=== PATIENT | female | born 1960 | race Caucasian/White ===

== ENCOUNTER 2019-08-11 14:46 | Outpatient (CLI) | payer BC, SELFPAY ==
--- NOTE | ~2019-08-11 | DEXA_ITS ---
Bone Density Report Name: Libby Josue Age: 59 Sex: Female Ethnicity: White Date of : 1960 Indication: postmenopausal; height loss; Referring Provider: Kathie Sabillon Study: Bone densitometry was performed. Exam Date: August 11, 2019 Accession number: [id number] Bone Density: Region BMD T-score Z-score Classification AP Spine (L2, L3, L4) 1.355 2.5 4.0 Normal Femoral Neck (Left) 0.695 -1.4 -0.1 Osteopenia Total Hip (Left) 0.793 -1.2 -0.3 Osteopenia World Health Organization criteria for BMD impression classify patients as: Normal (T-score at or above -1.0), Osteopenia (T-score between -1.0 and -2.5), or Osteoporosis (T-score at or below -2.5). 10-year Fracture Risk(1): Major Osteoporotic Fracture 6.2% Hip Fracture 0.4% Reported Risk Factors: [place] (), Neck BMD=0.695, BMI=53.8 Input outside FRAX(R) limits. Adjusted to:Dnnosj=337 kg (1) FRAX(R) Version 3.08. Fracture probability calculated for an untreated patient. Fracture probability may be lower if the patient has received treatment. Previous Exams: Region Exam Age BMD T-score BMD Change BMD Change Date g/cm2 vs Baseline vs Previous AP Spine(L2, L3, L4) 08/11/2019 59 1.355 2.5 0.219(19.3%)* 0.338(33.2%)* 06/11/2017 57 1.017 -0.6 -0.119(-10.4%) -0.119(-10.4%) 01/14/2015 54 1.136 0.5 Total Hip(Left) 08/11/2019 59 0.793 -1.2 -0.173(-17.9%) -0.250(-24.0%) 06/11/2017 57 1.042 0.8 0.077(8.0%)# 0.077(8.0%)# 01/14/2015 54 0.966 0.2 *Denotes significance at 95% confidence level, LSC for AP Spine = 0.022 g/cm2, LSC for Total Hip = 0.027 g/cm2 Clinical Information Provided by Patient: Has used the following medications: Boniva (i.e. ibandronate) Patient maximum height was 61 Menopause Age: 52 No regular weight bearing exercise Does not regularly consume dairy products Onset of menses at age 11 Number of children 1 Impression: The patient has low bone mass, based on the Left Femoral Neck T-score. The patient has an estimated ten-year risk of hip fracture of 0.4% and an estimated ten-year risk of major fracture of 6.2%, based on the WHO FRAX algorithm. No significant bone loss was observed. Discussion: BONE DENSITY IS LOW AT ONE OR MORE SKELETAL SITES. This patient's lowest T-score is low at one or more skeletal sites. It meets the World Health Organization's (WHO) criteria for ?low bone mass? (T-score between -1.0 and -2.5). The patient's 10-year risk of fracture as calculated by FRAX is less than the threshold wh
--- NOTE | ~2019-08-11 | MM_ITS ---
EXAMINATION: MM screening bautista BI w vijay HISTORY: Screening mammogram TECHNIQUE: Craniocaudal and mediolateral oblique 3-D tomosynthesis images were obtained and synthetic 2-D images were generated. CAD analysis was submitted and interpreted. COMPARISON: Comparison to multiple prior studies sequentially, with oldest reviewed study dated 07/2015. BREAST PARENCHYMAL COMPOSITION: There are scattered areas of fibroglandular density. FINDINGS: There is no evidence of suspicious mass, calcification, or architectural distortion to sugg est malignancy in either breast. There has been no suspicious interval change. IMPRESSION: 1. No mammographic evidence of malignancy. 2. Recommend routine screening mammography in one year. BI-RADS Category 1: Negative Reviewed, dictated and finalized at location A. ORICAL INTERPRETER
== END 2019-08-11 14:47 | disposition home or self-care (01) ==
LOC: ANHIMG 14:47
PROVIDERS: PCP Family Medicine; Visit Provider Student in an Organized Health Care Education/Training Program
DX: Z12.31 Encounter for screening mammogram for malignant neoplasm of breast (principal); Z78.0 Asymptomatic menopausal state; M85.852 Other specified disorders of bone density and structure, left thigh
CPT/HCPCS: 77063; 77067; 77080

== ENCOUNTER 2019-12-01 09:14 | Outpatient (CLI) | payer BC, SELFPAY ==
--- NOTE | ~2019-12-01 | CT_ITS ---
EXAMINATION: CT brain wo con DATE: 12/01/2019 09:52 INDICATION: Bilateral upper extremity paresis. Lightheadedness. TECHNIQUE: Computed tomography (CT) of the head was performed without intravenous contrast. The mA wa s adjusted according to patient size. Iterative reconstruction technique was employed. Exam dose: 60 5.33 mGy-cm total exam DLP. COMPARISON: None FINDINGS: No intracranial mass lesion or hemorrhage or cerebrovascular accident is evident. No midlin e shift or mass effect. Normal ventricular size. No subdural or epidural hematoma. No orbital mass lesion is evident. The included paranasal sinuses and mastoid air cells are normally developed and aerated. No fracture or bone destruction of the cranial vault. IMPRESSION: No significant abnormality Reviewed, dictated and finalized at Location A. Reviewed, dictated and finalized at location A. IMPRESSION: No significant abnormality
--- NOTE | ~2019-12-01 | US_ITS ---
EXAMINATION: US carotid duplex BI DATE: 12/01/2019 09:48 INDICATION: Bilateral arm weakness. TECHNIQUE: Grayscale, color Doppler, and pulsed Doppler images of the cervical carotid arteries were obtained. The degree of vessel stenosis is placed in one of the following categories: normal, <50%, 5 0-69%, >=70% but less than near-occlusion, near-occlusion, or total occlusion. Note that percent sten osis relative to normal distal artery lumen diameter is indirectly measured from velocity measurement s as described by Ruddy, et al. Radiology 2003; 229:340-346. COMPARISON: None. FINDINGS: RIGHT: The right common carotid artery (CCA) peak systolic velocity (PSV) is 88 cm/s. The right internal car otid artery (ICA) PSV is 76 cm/s. The right ICA end-diastolic velocity (EDV) is 19 cm/s. The right IC A/CCA PSV ratio is 0.9. Grayscale and color Doppler images demonstrate no evident plaque or stenosis in the ICA. The external carotid artery (ECA) PSV is 71 cm/s. There is antegrade flow in the right ve rtebral artery. LEFT: The left CCA PSV is 97 cm/s. The left ICA PSV is 54 cm/s. The left ICA EDV is 16 cm/s. The left ICA/C CA PSV ratio is 0.6. Grayscale and color Doppler images demonstrate no evident plaque or stenosis in the ICA. The ECA PSV is 49 cm/s. There is antegrade flow in the left vertebral artery. IMPRESSION: 1. No evident plaque or stenosis in the right internal carotid artery. 2. No evident plaque or stenosis in the left internal carotid artery. Reviewed, dictated and finalized at location A.
== END 2019-12-01 09:15 | disposition home or self-care (01) ==
LOC: ANHIMG 09:20
PROVIDERS: PCP Family Medicine; Visit Provider Physician Assistant
DX: R51 Headache (principal); R42 Dizziness and giddiness; R29.898 Other symptoms and signs involving the musculoskeletal system
CPT/HCPCS: 70450; 93880

== ENCOUNTER 2020-06-24 15:57 | Outpatient (CLI) | payer BC, SELFPAY ==
[2020-06-24 17:43] LABS: D Dimer 0.67 ug/mL (<0.48)
== END 2020-06-24 15:58 | disposition home or self-care (01) ==
PROVIDERS: PCP Family Medicine; Visit Provider Family Medicine
DX: R07.9 Chest pain, unspecified (principal)
CPT/HCPCS: 36415; 85380

== ENCOUNTER 2020-06-25 08:58 | Outpatient (CLI) | payer BC, SELFPAY ==
--- NOTE | ~2020-06-25 | CT_ITS ---
EXAMINATION: CTA chest PE protocol DATE: 06/25/2020 09:44 INDICATION: Chest pain TECHNIQUE: Computed tomography angiography (CTA) of the chest was performed with 100 mL Omnipaque-350 intravenous contrast timed to evaluate the pulmonary arteries. Coronal maximum intensity projection 3D-reconstructions were created by the technologist. Automated exposure control and iterative reconst ruction technique were employed. Exam dose: 958.64 mGy-cm total exam DLP. COMPARISON: None. FINDINGS: Examination is limited due to body habitus. The pulmonary arteries are moderately opacified with contrast material, without evidence of embolism. No evidence of thoracic aortic aneurysm. Cardiomegaly. No pericardial effusion. Left lobe thyroid goiter. No hilar or mediastinal mass lesion or lymphadenopathy. Small sliding hiatal hernia. No pulmonary consolidation or pulmonary mass lesion is evident. There is degenerative spurring of the thoracic spine. No suspicious osteolytic or osteoblastic lesion s are noted. IMPRESSION: No evidence of pulmonary embolism Reviewed, dictated and finalized at Location A. Reviewed, dictated and finalized at location B. TREER
[2020-06-25 09:39] LABS: Estimated Glomerular Filt Rate > 60
== END 2020-06-25 08:59 | disposition home or self-care (01) ==
PROVIDERS: PCP Family Medicine; Visit Provider Family Medicine
DX: R06.02 Shortness of breath (principal); R07.9 Chest pain, unspecified; R79.89 Other specified abnormal findings of blood chemistry
CPT/HCPCS: 71275; Q9967

== ENCOUNTER 2020-10-11 09:09 | Outpatient (CLI) | payer BC, SELFPAY ==
--- NOTE | ~2020-10-11 | MM_ITS ---
EXAMINATION: MM screening bautista BI w vijay HISTORY: Screening mammogram, family history of breast cancer in her mother. TECHNIQUE: Craniocaudal and mediolateral oblique 3-D tomosynthesis images were obtained and synthetic 2-D images were generated. CAD analysis was submitted and interpreted. COMPARISON: 08/11/2019, 07/22/2018, 03/05/2017 BREAST PARENCHYMAL COMPOSITION: The breasts are almost entirely fatty. FINDINGS: There is no evidence of suspicious mass, calcification, or architectural distortion to sugg est malignancy in either breast. There has been no suspicious interval change. IMPRESSION: 1. No mammographic evidence of malignancy. 2. Recommend routine screening mammography in one year. BI-RADS Category 1: Negative Reviewed, dictated and finalized at location A.
== END 2020-10-11 09:10 | disposition home or self-care (01) ==
LOC: ANHIMG 09:12
PROVIDERS: PCP Family Medicine; Visit Provider Student in an Organized Health Care Education/Training Program
DX: Z12.31 Encounter for screening mammogram for malignant neoplasm of breast (principal)
CPT/HCPCS: 77063; 77067

== ENCOUNTER 2021-10-14 10:21 | Outpatient (CLI) | payer BC, SELFPAY ==
--- NOTE | ~2021-10-14 | MM_ITS ---
EXAMINATION: MM screening bautista BI w vijay HISTORY: Screening TECHNIQUE: Craniocaudal and mediolateral oblique 3-D tomosynthesis images were obtained and synthetic 2-D images were generated. CAD analysis was submitted and interpreted. COMPARISON: Comparison to multiple prior studies sequentially, with oldest reviewed study dated 07/2015. BREAST PARENCHYMAL COMPOSITION: The breasts are almost entirely fatty. FINDINGS: There is no evidence of suspicious mass, calcification, or architectural distortion to sugg est malignancy in either breast. There has been no suspicious interval change. IMPRESSION: 1. No mammographic evidence of malignancy. 2. Recommend routine screening mammography in one year. BI-RADS Category 1: Negative Reviewed, dictated and finalized at location A.
== END 2021-10-14 10:22 | disposition home or self-care (01) ==
PROVIDERS: PCP Family Medicine; Visit Provider Student in an Organized Health Care Education/Training Program
DX: Z12.31 Encounter for screening mammogram for malignant neoplasm of breast (principal)
CPT/HCPCS: 77063; 77067

== ENCOUNTER → 2022-04-17 08:36 | Outpatient (CLI) | payer BC, SELFPAY ==
--- NOTE | ~2022-04-17 | XR_ITS ---
XR shoulder LT min 2V 04/17/2022 08:55 Indication: Left shoulder pain for 2 months Procedure: 4 views left shoulder Comparison: 11/17/2012 Findings: No fracture, subluxation or dislocation. There is mild osteoarthritis of the acromioclavicu lar joint. No soft tissue abnormality. No foreign bodies. Impression: 1: Mild left acromioclavicular joint osteoarthritis. Reviewed, dictated and finalized at location B. Impression: 1: Mild left acromioclavicular joint osteoarthritis.
== END ==
PROVIDERS: PCP Family Medicine; Visit Provider Family Medicine
DX: M19.012 Primary osteoarthritis, left shoulder (principal)
CPT/HCPCS: 73030

== ENCOUNTER 2022-11-03 07:42 | Outpatient (CLI) | payer BC, SELFPAY ==
--- NOTE | ~2022-11-03 | US_ITS ---
EXAMINATION: US pelvic complete w TV DATE: 11/03/2022 08:25 INDICATION: Postmenopausal bleeding Comparison:Ultrasound dated 02/21/2005 TECHNIQUE: Multiple transabdominal and endovaginal sonographic images of the pelvis performed. FINDINGS: The uterus measures 10.9 x 3.7 x 4.2 cm. There are nabothian cysts. The endometrial complex measures 2 mm. The ovaries are not visualized, likely atrophic. There is no free fluid in the pelvis. There are no abnormal masses seen on either side. IMPRESSION: 1. Enlarged uterus. Reviewed, dictated and finalized at location L. IMPRESSION: 1. Enlarged uterus.
== END 2022-11-03 07:43 | disposition home or self-care (01) ==
PROVIDERS: PCP Family Medicine; Visit Provider Obstetrics & Gynecology
DX: N95.0 Postmenopausal bleeding (principal); D25.9 Leiomyoma of uterus, unspecified
CPT/HCPCS: 76830; 76856

== ENCOUNTER 2023-01-08 12:34 | Outpatient (CLI) | payer BC, SELFPAY ==
--- NOTE | ~2023-01-08 | US_ITS ---
EXAMINATION: US pelvic complete w TV DATE: 01/08/2023 13:39 INDICATION: N95.0 - Postmenopausal bleeding TECHNIQUE: Multiple transabdominal and endovaginal sonographic images of the pelvis were obtained. COMPARISON: None. FINDINGS: Exam limited by body habitus and obscuration of structures by bowel gas. Uterus: 8.5 x 3.5 x 3.6 cm. Endometrial complex measures 3 mm. Right Ovary: Not visualized. Left Ovary: Not visualized. There is no free fluid in the pelvis. IMPRESSION: Limited examination. Normal-appearing uterus. Ovaries not visualized. Reviewed, dictated and finalized at location K.
== END 2023-01-08 12:35 | disposition home or self-care (01) ==
PROVIDERS: PCP Family Medicine; Visit Provider Obstetrics & Gynecology
DX: N95.0 Postmenopausal bleeding (principal)
CPT/HCPCS: 76830; 76856

== ENCOUNTER 2023-03-19 14:00 | Outpatient (CLI) | payer BC, SELFPAY ==
--- NOTE | ~2023-03-19 | MM_ITS ---
EXAMINATION: MM screening bautista BI w vijay HISTORY: Screening mammogram TECHNIQUE: Craniocaudal and mediolateral oblique 3-D tomosynthesis images were obtained and synthetic 2-D images were generated. CAD analysis was submitted and interpreted. COMPARISON: 10/14/2021, 10/11/2020, 08/11/2019 bilateral screening mammogram examinations BREAST PARENCHYMAL COMPOSITION: The breasts are almost entirely fatty. FINDINGS: There is no evidence of suspicious mass, calcification, or architectural distortion to sugg est malignancy in either breast. There has been no suspicious interval change. IMPRESSION: 1. No mammographic evidence of malignancy. 2. Recommend routine screening mammography in one year. BI-RADS Category 1: Negative Reviewed, dictated and finalized at location A.
== END 2023-03-19 14:01 | disposition home or self-care (01) ==
LOC: CHSIMG 14:02
PROVIDERS: PCP Family Medicine; Visit Provider Obstetrics & Gynecology
DX: Z12.31 Encounter for screening mammogram for malignant neoplasm of breast (principal)
CPT/HCPCS: 77063; 77067

== ENCOUNTER 2024-07-06 13:14 | Outpatient (CLI) | payer MEDICARE, SELFPAY ==
--- NOTE | ~2024-07-06 | MM_ITS ---
EXAMINATION: MM screening bautista BI w vijay HISTORY: Screening mammogram, family history of breast cancer in her mother. TECHNIQUE: Craniocaudal and mediolateral oblique 3-D tomosynthesis images were obtained and synthetic 2-D images were generated. CAD analysis was submitted and interpreted. COMPARISON: 03/19/2023, 10/14/2021, 10/11/2020 BREAST PARENCHYMAL COMPOSITION:Not Dense. There are scattered areas of fibroglandular density. FINDINGS: No suspicious mass, calcification, or architectural distortion are identified in either lori ast to suggest malignancy. There has been no suspicious interval change. IMPRESSION: No mammographic evidence of malignancy. Recommend routine screening mammography in one year. BI-RADS Category 1: Negative Reviewed, dictated and finalized at location . WARE PACKAGER
--- NOTE | ~2024-07-06 | DEXA_ITS ---
Bone Density Report Name: HUMBERTO EMERSON Age: 64 Sex: Female Ethnicity: White Date of : 1960 Indication: postmenopausal; screening for osteoporosis; height loss; Referring Provider: AGUEDA GAVIN Study: Bone densitometry was performed. Exam Date: July 06, 2024 Accession number: [id number] Bone Density: Region BMD T-score Z-score Classification Femoral Neck (Left) -0.14 -8.9 -7.4 Osteoporosis Total Hip (Left) 1.117 1.4 2.7 Normal Femoral Neck (Right) 0.595 -2.3 -0.8 Osteopenia Total Hip (Right) 0.865 -0.6 0.6 Normal Femoral Neck Mean 0.227 -5.6 -4.1 Osteoporosis Total Hip Mean 0.991 0.4 1.6 Normal World Health Organization criteria for BMD impression classify patients as: Normal (T-score at or above -1.0), Osteopenia (T-score between -1.0 and -2.5), or Osteoporosis (T-score at or below -2.5). 10-year Fracture Risk: FRAX not reported because: Some T-score for Spine Total or Hip Total or Femoral Neck at or below -2.5 Treated for osteoporosis Clinical Information Provided by Patient: Is being treated for osteoporosis Has used the following medications: Boniva (i.e. ibandronate), Calcium Patient maximum height was 60 Menopause Age: 59 No regular weight bearing exercise Drinks caffeinated beverages Onset of menses at age 13 Number of children 1 Impression: The patient has osteoporosis, based on the Left Femoral Neck T-score. Discussion: It is important to ask patients whether they are taking their medications and to encourage continued and appropriate compliance with their osteoporosis therapies to reduce fracture risk. It is also important to review their risk factors and encourage appropriate calcium and vitamin D intakes, exercise, fall prevention and other lifestyle measures. Follow-Up: Consider a repeat BMD and Vertebral Fracture Assessment (VFA) exam in 2 years or sooner if medically necessary, to reassess this patient's status. Reported by: NATE on 07/06/2024 1:46:00 PM. Reviewed, dictated and finalized at location A.
== END 2024-07-06 13:15 | disposition home or self-care (01) ==
LOC: CHSIMG 13:16
PROVIDERS: PCP Family Medicine; Visit Provider Nurse Practitioner Obstetrics & Gynecology
DX: Z12.31 Encounter for screening mammogram for malignant neoplasm of breast (principal); Z78.0 Asymptomatic menopausal state; M85.88 Other specified disorders of bone density and structure, other site; M81.0 Age-related osteoporosis without current pathological fracture
CPT/HCPCS: 77063; 77067; 77080

== ENCOUNTER 2024-08-01 14:03 | Outpatient (CLI) | payer MEDICARE, SELFPAY ==
--- NOTE | ~2024-08-01 | XR_ITS ---
EXAMINATION: XR sacrum coccyx min 2V DATE: 08/01/2024 14:28 INDICATION: Pain TECHNIQUE: Frontal, angled frontal and lateral views of the sacrum and coccyx were obtained. COMPARISON: None. FINDINGS: Degenerative disease is identified within the lumbar spine, with osteophyte formation, disc space anna rowing, endplate changes and vacuum phenomena. Significant facet arthropathy is also noted. No discrete acute fracture is appreciated within the sacrum. Within the distal margin of the sacrum, the coccyx demonstrates anterior angularity, age indeterminat e IMPRESSION: Age indeterminate angularity of the coccyx with severe degenerative disease within the lumbosacral sp ine. Reviewed, dictated and finalized at location A. UCTION INSPECTOR IMPRESSION: Age indeterminate angularity of the coccyx with severe degenerative disease wit hin the lumbosacral spine.
--- OUTSIDE RECORDS SUMMARY | 2024-08-01 14:58 | XMS_ITS | Clinical Summary ---
Author Organization [facility] Address [address] [place] [address] Care Team Providers Care Second Cutter Name Role Phone Boris Valiente MD Primary Care Provider Allergies Active Allergy Reactions Criticality Noted Date Comments Clindamycin Hcl Rash Medium 04/13/2019 Penicillin G Sodium Rash Medium 04/13/2019 Medications lisinopril-hydro CHLOROthiazide (ZESTORETIC) 10-12.5 mg per tablet TAKE 1 TABLET BY MOUTH ONCE DAILY 90 tablet 04/30/2019 Active escitalopram (LEXAPRO) 20 mg tablet TAKE 1 TABLET BY MOUTH ONCE DAILY 90 tablet 06/13/2019 Active ibandronate (BONIVA) 150 mg tablet TAKE 1 TABLET BY MOUTH ONCE EVERY MONTH 3 tablet 07/15/2019 Active omeprazole (PriLOSEC) 40 mg capsule 20 mg 01/30/2021 Active calcium carbonate-vitami n D3 500 mg(1,250mg) -125 unit per tablet Take 1 tablet by mouth daily Active doxycycline 100 mg tablet Take 1 tablet/caps ule (100 mg total) by mouth 2 (two) times a day 03/07/2022 Active Active Problems Problem Noted Date Diagnosed Date Primary osteoarthritis of both knees 10/14/2022 Shortness of breath 07/01/2020 Assessment & Plan (04/18/2024 9:43 AM CDT): The patient is reporting 1 episode of breathing that caused back pain. I have offered a chest x-ray. The patient would like to hold off at this time Assessment & Plan (07/01/2020 4:46 PM FROZEN FOOD SELECTOR): The echo Doppler showed normal ejection fraction. No significant valvular abnormality. The BNP level on 05/05/[address] angio of the chest 05/29/2019 showed no pulmonary embolism. No pneumonia. Findings suggestive of fatty infiltration of the liver. Precordial chest pain 05/05/2019 Assessment & Plan (07/02/2020 10:14 AM FROZEN FOOD SELECTOR): Lexiscan stress test 05/12/2019, was negative for ischemia. Echo showed normal ejection fraction, no significant valvular abnormality. Has been having chest pains again since the beginning of the new year. Musculoskeletal chest wall pains as described under the HPI . No further cardiac workup required. Assessment & Plan (05/05/2019 2:49 PM FROZEN FOOD SELECTOR): EKG today shows normal sinus rhythm, normal QRS morphology. Will set up a Lexiscan stress test to look for myocardial ischemia. She will not be able to do a walking stress tests on account of her physique. Polyp of sigmoid colon 04/13/2019 Assessment & Plan (04/13/2019 1:21 PM CDT): Refer to GI Osteoporosis 08/02/2017 Assessment & Plan (06/02/2019 12:15 PM FROZEN FOOD SELECTOR): Stopping PPI to see if she can tolerate without it Assessment & Plan (04/13/2019 1:20 PM CDT): Stable Cont boniva Major depression, recurrent, chronic 01/14/2017 Assessment & Plan (04/13/2019 1:20 PM CDT): Stable Cont lexapro Morbid obesity with BMI of 60.0-69.9, adult 12/20 Assessment & Plan (07/02/2020 10:13 AM FROZEN FOOD SELECTOR): Lose weight. Assessment & Plan (06/02/2019 12:15 PM FROZEN FOOD SELECTOR): Wants to consider medications for weight loss. We discussed that her dyspnea may be secondary to deconditioning and/or her weight. She also had the fatty liver on CTA chest. Tried phentermine in the past, but with her HTN and recent cardiac work- up will try to avoid this. Try Contrave - see if covered/affordable Primary osteoarthritis of fi rst carpometacarpal joint of left hand 06/26/2016 AMPARO (obstructive sleep apnea) 12/16/2015 Assessment & Plan (04/18/2024 9:43 AM CDT): Due to continued symptoms, the patient will continue with CPAP at 18 cm water pressure. Denied need for supplies. DME adapt Assessment & Plan (04/12/2023 4:14 PM CDT): Patient continue to wear her CPAP at 18 cm water pressure while sleeping. Her DME is adapt. Assessment & Plan (04/06/2022 3:02 PM CDT): Patient continue to wear her CPAP at 18 cm water pressure while sleeping. Her DME is [employer]. Assessment & Plan (04/07/2021 2:16 PM CDT): The patient will continue with CPAP therapy at 18 cm water pressure. The patient did not need an order for supplies. DME company provider [employer]. Patient is benefitting from CPAP therapy. Chronic rhinitis 10/30/2015 GERD (gastroesophageal reflux disease) 6 Assessment & Plan (06/02/2019 12:14 PM FROZEN FOOD SELECTOR): Will have her stop the PPI and see how she does without it. Assessment & Plan (04/13/2019 1:21 PM CDT): Stable Cont omeprazole Hypertension 10/30/2015 Assessment & Plan (07/11/2020 1:01 PM FROZEN FOOD SELECTOR): Blood pressure 138/82. Salt restriction. Continue the current antihypertensive regimen, which consists of lisinopril-HCTZ. Assessment & Plan (05/05/2019 2:46 PM FROZEN FOOD SELECTOR): Blood pressure 134/60. Salt restriction. Continue the current regimen. Assessment & Plan (04/13/2019 1:20 PM CDT): Stable Cont prinzide Immunizations Name Administration Dates Next Due Influenza, Quadrivalent, Spl it, Intramuscular 05/28/2016 Influenza, Unspecified 03/21/2018(Deferr ed: Not available from certified orthotic fitter) Surgical History Surgery Date Site/Laterality Comments SECTION CARPAL TUNNEL RELEASE Bilateral Medical History Medical History Date Comments Arthritis Hypertension Depression GERD (gastroesophageal reflux disease) Chronic rhinitis Family History Medical History Relation Name Comments Hypertension Father Cancer Maternal Grandfather Cancer Maternal Grandmother Breast cancer Mother Diabetes Mother Hypertension Mother Relation Name Status Comments Father Maternal Grandfather Maternal Grandmother Mother Alive Social History Tobacco Use Types Packs/Day Years Used Date Smoking Tobacco: Never Smokeless Tobacco: Never Tobacco Cessation:Counseling Given: Not Answered Alcohol Use Standard Drinks/Week Comments Not Currently 0 (1 standard drink = 0.6 oz pur e alcohol) AUDIT-C Answer Date Recorded Q1: How often do you have a drink containing alc ohol? Never 04/07/2021 Average Number of Drinks Not on file 021 Q3: How often do you have si x or more drinks on one occasion? Never 04/07/2021 Personal Safety Answer Date Recorded Getting School Help Needed Not on file 09/04 Comments Unknown Sex and Gender Information Value Date Recorded Sex Assigned at Not on file Legal Sex Female 3:30 AM FROZEN FOOD SELECTOR Gender Identity Not on file Sexual Orientation Not on file Obstetrics History Last Filed Vital Signs Vital Sign Reading Time Taken Comments Blood Pressure 136/60 04/18/2024 8:38 AM CDT Pulse 77 04/18/2024 8:38 AM CDT Temperature 36.2 C (97.1 F) 04/18/2024 8:38 AM CDT Respiratory Rate 18 04/18/2024 8:38 AM CDT Oxygen Saturation 96% 04/18/2024 8:38 AM CDT Inhaled Oxygen Concentration - - Weight 174.6 kg (385 lb) 04/18/2024 8:38 AM CDT Height 152.4 cm (5') 04/18/2024 8:38 AM CDT Body Mass Index 75.19 04/18/2024 8:38 AM CDT Plan of Treatment Health Maintenance Due Date Last Done Comments Breast Cancer Screening-Mammogram 1960 Cervical Cancer Screening 1960 Depression Screening 1960 Fall Risk Assessment 1960 Osteoporosis Screening-Bone Density Scan 1960 DTaP/Tdap/Td Vaccine (1 - Tdap) 1970 Hepatitis B Screening 1977 Zoster Vaccine (1 of 2) 2009 Influenza Vaccine (#1) 2024 05/28/2016 Pneumococcal vaccine 65+ (1 of 1 - PCV) 2024 Well Visit 65+ 2024 Colon Cancer Screening-Colonoscopy 08/05/20282018 Hepatitis C Screening Completed 01/21/2018 Colon Cancer Screening-CT Colonography Discontinued Colon Cancer Screening-DNA Stool Discontinued 08/05/19 Colon Cancer Screening-FIT Discontinued 08/05/2018 Colon Cancer Screening-Sigmoidoscopy Discontinued 07/22 Procedures Procedure Name Priority Date/Time Associated Diagnosis Comments COLONOSCOPY Routine 08/05/2018 HEPATITIS PANEL, ACUTE Routine 01/21/2018 12:10 PM CDT from Last 3 Months or Most Recently Relevant to Health Maintenance Results * COLONOSCOPY (08/05/2018) [facility] Colonoscopy Abnormal Comment:sigmoid polyp Historical Provider HEALTH MAINTENANCE Final Result * Hepatitis panel, acute (01/21/2018 12:10 PM CDT) [facility] Hep A IgM NON-REACTI VE NON-REACTI VE [facility] HISTORICAL RESULTS HepBsAg NON-REACTI VE NON-REACTI VE [facility] HISTORICAL RESULTS Hep B core IgM NON-REACTI VE NON-REACTI VE [facility] HISTORICAL RESULTS Hep C Ab NON-REACTI VE NON-REACTI VE [facility] HISTORICAL RESULTS SIGNAL TO CUT-OFF 0.01 <1.00 [facility] HISTORICAL RESULTS 01/21/2018 12:1 0 PM CDT 01/22/2018 9:05 AM CDT Narrative [facility] HISTORICAL RESULTS - 01/22/2018 8:59 AM CDT PERFORMING LAB: [place], [facility] [address], [place] [address] Shakeel Rasmussen D.O., MPH us Carmen Sheppard MD LAB MICROBIOLOGY - GENERA L ORDERABLES Final Result [facility] HISTORICAL RESULTS from Last 3 Months or Most Recently Relevant to Health Maintenance Insurance [facility] [place] [address] Care Teams Second Cutter Relationship Specialty Start Date End Date Boris Valiente MD [address] [facility] [address] [place] [address] PCP - General Family Medicine 03/26/20
--- OUTSIDE RECORDS SUMMARY | 2024-08-01 14:58 | XMS_ITS | Encounter Summary ---
Author Organization [facility] Facility Care Team Providers Care Greenhouse Worker Name Role Phone Boris Valiente MD Primary Care Provider Carmen Sheppard MD Primary Care Provider [phone] Boris Valiente MD Primary Care Provider Encounter Details Date Type Department Care Team (Latest Contact Info) Description 08/08/2018 Orders Only [facility] CLINCONV ProviderKota MD [address] [place] [address] Social History Tobacco Use Types Packs/Day Years Used Date Smoking Tobacco: Never Assessed Comments Unknown Sex and Gender Information Value Date Recorded Sex Assigned at Not on file Legal Sex Female 3:30 AM TRANSACTIONAL ATTORNEY Gender Identity Not on file Sexual Orientation Not on file documented as of this encounter Plan of Treatment Not on file documented as of this encounter Procedures Procedure Name Priority Date/Time Associated Diagnosis Comments COLONOSCOPY - SCAN 08/08/2018 12 :00 AM TRANSACTIONAL ATTORNEY documented in this encounter Results * COLONOSCOPY - SCAN (08/08/2018 12:00 AM TRANSACTIONAL ATTORNEY) Narrative 08/08/2018 12:00 AM TRANSACTIONAL ATTORNEY Ordered by an unspecified provider. Historical Provider Final Res ult documented in this encounter Visit Diagnoses Not on filedocumented in this encounter Care Teams Greenhouse Worker Relationship Specialty Start Date End Date Boris Valiente MD [address] [facility] [address] [place] [address] PCP - General 05/28/14 10/12/18 Carmen Sheppard MD [address] [facility] [address] [place] [address] PCP - General Family Medicine 10/13/18 03/25/20 Boris Valiente MD [address] [facility] [address] [place] [address] PCP - General Family Medicine 03/26/20 documented as of this encounter
--- OUTSIDE RECORDS SUMMARY | 2024-08-01 14:58 | XMS_ITS | Referral Summary ---
Author Organization [facility] Address [address] [place] [address] Care Team Providers Care Press Operator Carbon Products Name Role Phone Boris Valiente MD Primary [...] time Assessment & Plan (07/01/2020 4:46 PM FILM PRODUCER): The echo Doppler showed normal ejection fraction. No significant valvular abnormality. The BNP level on 05/05/[address] angio of the chest 05/29/2019 showed no pulmonary embolism. No pneumonia. Findings suggestive of fatty infiltration of the liver. Precordial chest pain 05/05/2019 Assessment & Plan (07/02/2020 10:14 AM FILM PRODUCER): Lexiscan stress test 05/12/2019, was negative for ischemia. Echo showed normal ejection fraction, no significant valvular abnormality. Has been having chest pains again since the beginning of the new year. Musculoskeletal chest wall pains as described under the HPI . No further cardiac workup required. Assessment & Plan (05/05/2019 2:49 PM FILM PRODUCER): EKG today shows normal sinus rhythm, normal QRS morphology. Will set up a Lexiscan stress test to look for myocardial ischemia. She will not be able to do a walking stress tests on account of her physique. Polyp of sigmoid colon 04/13/2019 Assessment & Plan (04/13/2019 1:21 PM CDT): Refer to GI Osteoporosis 08/02/2017 Assessment & Plan (06/02/2019 12:15 PM FILM PRODUCER): Stopping PPI to see if she can tolerate without it Assessment & Plan (04/13/2019 1:20 PM CDT): Stable Cont boniva Major depression, recurrent, chronic 01/14/2017 Assessment & Plan (04/13/2019 1:20 PM CDT): Stable Cont lexapro Morbid obesity with BMI of 60.0-69.9, adult 12/20 Assessment & Plan (07/02/2020 10:13 AM FILM PRODUCER): Lose weight. Assessment & Plan (06/02/2019 12:15 PM FILM PRODUCER): Wants to consider medications for weight loss. [...] 6 Assessment & Plan (06/02/2019 12:14 PM FILM PRODUCER): Will have her stop the PPI and see how she does without it. Assessment & Plan (04/13/2019 1:21 PM CDT): Stable Cont omeprazole Hypertension 10/30/2015 Assessment & Plan (07/11/2020 1:01 PM FILM PRODUCER): Blood pressure 138/82. Salt restriction. Continue the current antihypertensive regimen, which consists of lisinopril-HCTZ. Assessment & Plan (05/05/2019 2:46 PM FILM PRODUCER): Blood pressure 134/60. Salt restriction. Continue the current regimen. Assessment & Plan (04/13/2019 1:20 PM CDT): Stable Cont prinzide Immunizations Name Administration Dates Next Due Influenza, Quadrivalent, Spl it, Intramuscular 05/28/2016 Influenza, Unspecified 03/21/2018(Deferr ed: Not available from bean picker machine operator) Social History Tobacco Use Types Packs/Day Years [...] on file Legal Sex Female 3:30 AM FILM PRODUCER Gender Identity Not on file Sexual Orientation Not on file Last Filed Vital Signs Vital Sign Reading [...] 04/18/2024 8:38 AM CDT Plan of Treatment Not on file Procedures Procedure Name Priority Date/Time Associated Diagnosis Comments COLONOSCOPY Routine 08/05/2018 HEPATITIS PANEL, ACUTE Routine 01/21/2018 12:10 PM CDT from Last 3 Months or Most Recently Relevant to Health Maintenance Results * COLONOSCOPY (08/05/2018) Pathologist [facility] Colonoscopy Abnormal Comment:sigmoid polyp us Historical Provider MD HEALTH MAINTENANCE Final Result * Hepatitis panel, acute (01/21/2018 12:10 PM CDT) [facility] Hep A IgM NON-REACTI VE NON-REACTI VE [facility] HISTORICAL RESULTS HepBsAg NON-REACTI VE NON-REACTI VE [facility] HISTORICAL RESULTS Hep B core IgM NON-REACTI VE NON-REACTI VE [facility] HISTORICAL RESULTS Hep C Ab NON-REACTI VE NON-REACTI VE [facility] HISTORICAL RESULTS SIGNAL TO CUT-OFF 0.01 <1.00 [facility] HISTORICAL RESULTS 01/21/2018 12:1 0 PM CDT 01/22/2018 9:05 AM CDT Narrative [facility] HISTORICAL RESULTS - 01/22/2018 8:59 AM CDT PERFORMING LAB: [place], [facility] [address] [place] [address] Shakeel Rasmussen D.O., MPH Carmen Sheppard MD LAB MICROBIOLOGY - GENERA L ORDERABLES Final Result [facility] HISTORICAL RESULTS from Last 3 Months or Most Recently Relevant to Health Maintenance [facility] Care Teams Press Operator Carbon Products Relationship Specialty Start Date End Date Boris Valiente MD [address] [facility] [address] [place] [address] PCP - General Family Medicine 03/26/20
== END 2024-08-01 14:04 | disposition home or self-care (01) ==
PROVIDERS: PCP Family Medicine; Visit Provider Physician Assistant
DX: M53.3 Sacrococcygeal disorders, not elsewhere classified (principal)
CPT/HCPCS: 72220

== ENCOUNTER 2024-08-14 08:39 | Outpatient (CLI) | payer MEDICARE, SELFPAY ==
--- NOTE | ~2024-08-14 | MMUS_ITS ---
EXAMINATION: MM diagnostic bautista RT w vijay, US breast RT limited HISTORY: Right breast lump TECHNIQUE: Additional 3-D tomosynthesis images of the right breast were performed and synthetic 2-D i mages were generated. CAD analysis was submitted and interpreted. High resolution limited right breas t ultrasound was performed. COMPARISON: 07/06/2024, 03/19/2023 BREAST PARENCHYMAL COMPOSITION:Not Dense. There are scattered areas of fibroglandular density. FINDINGS: MAMMOGRAPHIC FINDINGS: No mass lesion or distortion seen in the area of concern mammographically. No suspicious microcalcifi cations seen. ULTRASOUND: There is suggestion of a somewhat amorphous 1.1 x 1.1 x 1.7 cm hyperechoic area in the right breast 2 :00 position, 7 cm and a fourth area of concern. IMPRESSION: Suggestion of somewhat ill-defined hyperechoic mass or tissue at the 2:00 position right breast, the area of concern. No distinct mammographic correlate. This is most likely benign. Six-month follow-up ultrasound advised. BI-RADS category 3, probably benign findings. Reviewed, dictated and finalized at location . TIONAL REHABILITATION SPECIALIST IMPRESSION: Suggestion of somewhat ill-defined hyperechoic mass or tissue at the 2:00 posi tion right breast, the area of concern. No distinct mammographic correlate. Thi s is most likely benign. Six-month follow-up ultrasound advised. BI-RADS category 3, probably benign findings.
--- OUTSIDE RECORDS SUMMARY | 2024-08-14 08:58 | XMS_ITS | Encounter Summary ---
Author Organization [facility] Facility Care Team Providers Care Farmworker Poultry Name Role Phone Boris Valiente MD Primary Care Provider Carmen Sheppard MD Primary Care Provider [phone] Boris Valiente MD Primary Care Provider Encounter Details Date Type Department Care Team (Latest Contact Info) Description 08/08/2018 Orders Only [facility] CLINCONV ProviderKota MD [address] [place] [address] Social History Tobacco Use Types Packs/Day Years Used Date Smoking Tobacco: Never Assessed Comments Unknown Sex and Gender Information Value Date Recorded Sex Assigned at Not on file Legal Sex Female 3:30 AM RECEPTIONIST SECRETARY Gender Identity Not on file Sexual Orientation Not on file documented as of this encounter Plan of Treatment Not on file documented as of this encounter Procedures Procedure Name Priority Date/Time Associated Diagnosis Comments COLONOSCOPY - SCAN 08/08/2018 12 :00 AM RECEPTIONIST SECRETARY documented in this encounter Results * COLONOSCOPY - SCAN (08/08/2018 12:00 AM RECEPTIONIST SECRETARY) Narrative 08/08/2018 12:00 AM RECEPTIONIST SECRETARY Ordered by an unspecified provider. Historical Provider Final Res ult documented in this encounter Visit Diagnoses Not on filedocumented in this encounter Care Teams Farmworker Poultry Relationship Specialty Start Date End Date Boris Valiente MD [address] [facility] [address] [place] [address] PCP - General 05/28/14 10/12/18 Carmen Sheppard MD [address] [facility] [address] [place] [address] PCP - General Family Medicine 10/13/18 03/25/20 Boris Valiente MD [address] [facility] [address] [place] [address] PCP - General Family Medicine 03/26/20 documented as of this encounter
--- OUTSIDE RECORDS SUMMARY | 2024-08-14 08:58 | XMS_ITS | Clinical Summary ---
Author Organization [facility] Address [address] [place] [address] Care Team Providers Care Glove Turner And Former Name Role Phone Boris Valiente MD Primary [...] time Assessment & Plan (07/01/2020 4:46 PM TELETYPE TELEGRAPHER): The echo Doppler showed normal ejection fraction. No significant valvular abnormality. The BNP level on 05/05/[address] angio of the chest 05/29/2019 showed no pulmonary embolism. No pneumonia. Findings suggestive of fatty infiltration of the liver. Precordial chest pain 05/05/2019 Assessment & Plan (07/02/2020 10:14 AM TELETYPE TELEGRAPHER): Lexiscan stress test 05/12/2019, was negative for ischemia. Echo showed normal ejection fraction, no significant valvular abnormality. Has been having chest pains again since the beginning of the new year. Musculoskeletal chest wall pains as described under the HPI . No further cardiac workup required. Assessment & Plan (05/05/2019 2:49 PM TELETYPE TELEGRAPHER): EKG today shows normal sinus rhythm, normal QRS morphology. Will set up a Lexiscan stress test to look for myocardial ischemia. She will not be able to do a walking stress tests on account of her physique. Polyp of sigmoid colon 04/13/2019 Assessment & Plan (04/13/2019 1:21 PM CDT): Refer to GI Osteoporosis 08/02/2017 Assessment & Plan (06/02/2019 12:15 PM TELETYPE TELEGRAPHER): Stopping PPI to see if she can tolerate without it Assessment & Plan (04/13/2019 1:20 PM CDT): Stable Cont boniva Major depression, recurrent, chronic 01/14/2017 Assessment & Plan (04/13/2019 1:20 PM CDT): Stable Cont lexapro Morbid obesity with BMI of 60.0-69.9, adult 12/20 Assessment & Plan (07/02/2020 10:13 AM TELETYPE TELEGRAPHER): Lose weight. Assessment & Plan (06/02/2019 12:15 PM TELETYPE TELEGRAPHER): Wants to consider medications for weight loss. [...] 6 Assessment & Plan (06/02/2019 12:14 PM TELETYPE TELEGRAPHER): Will have her stop the PPI and see how she does without it. Assessment & Plan (04/13/2019 1:21 PM CDT): Stable Cont omeprazole Hypertension 10/30/2015 Assessment & Plan (07/11/2020 1:01 PM TELETYPE TELEGRAPHER): Blood pressure 138/82. Salt restriction. Continue the current antihypertensive regimen, which consists of lisinopril-HCTZ. Assessment & Plan (05/05/2019 2:46 PM TELETYPE TELEGRAPHER): Blood pressure 134/60. Salt restriction. Continue the current regimen. Assessment & Plan (04/13/2019 1:20 PM CDT): Stable Cont prinzide Immunizations Immunization Administration Dates Next Due Influenza, Quadrivalent, Spl it, Intramuscular 05/28/2016 Influenza, Unspecified 03/21/2018(Deferr ed: Not available from splicing technician) Surgical History Surgery Date Site/Laterality Comments SECTION [...] on file Legal Sex Female 3:30 AM TELETYPE TELEGRAPHER Gender Identity Not on file Sexual Orientation [...] to Health Maintenance Results * COLONOSCOPY (08/05/2018) [facility] Colonoscopy Abnormal Comment:sigmoid polyp Historical Provider HEALTH MAINTENANCE Final Result * Hepatitis panel, acute (01/21/2018 12:10 PM CDT) [facility] Hep A IgM NON-REACTI VE NON-REACTI VE [facility] HISTORICAL RESULTS HepBsAg NON-REACTI VE NON-REACTI VE [facility] HISTORICAL RESULTS Hep B core IgM NON-REACTI VE NON-REACTI VE [facility] HISTORICAL RESULTS Hep C Ab NON-REACTI VE NON-REACTI VE [facility] HISTORICAL RESULTS SIGNAL TO CUT-OFF 0.01 <1.[address] [facility] HISTORICAL RESULTS 01/21/2018 12:1 0 PM CDT 01/22/2018 9:05 AM CDT Narrative [facility] HISTORICAL RESULTS - 01/22/2018 8:59 AM CDT PERFORMING LAB: [place], [facility] [address], [place] [address] Shakeel Rasmussen D.O., MPH us Carmen Sheppard MD LAB MICROBIOLOGY - GENERA L ORDERABLES Final Result [facility] HISTORICAL RESULTS from Last 3 Months or Most Recently Relevant to Health Maintenance Insurance [facility] [place] [address] Care Teams Glove Turner And Former Relationship Specialty Start Date End Date Boris Valiente MD [address] [facility] [address] [place] [address] PCP - General Family Medicine 03/26/20
--- OUTSIDE RECORDS SUMMARY | 2024-08-14 08:58 | XMS_ITS | Referral Summary ---
Author Organization [facility] Address [address] [place] [address] Care Team Providers Care Certified Public Accountant Name Role Phone Boris Valiente MD Primary [...] time Assessment & Plan (07/01/2020 4:46 PM SOCK IRONER): The echo Doppler showed normal ejection fraction. No significant valvular abnormality. The BNP level on 05/05/[address] angio of the chest 05/29/2019 showed no pulmonary embolism. No pneumonia. Findings suggestive of fatty infiltration of the liver. Precordial chest pain 05/05/2019 Assessment & Plan (07/02/2020 10:14 AM SOCK IRONER): Lexiscan stress test 05/12/2019, was negative for ischemia. Echo showed normal ejection fraction, no significant valvular abnormality. Has been having chest pains again since the beginning of the new year. Musculoskeletal chest wall pains as described under the HPI . No further cardiac workup required. Assessment & Plan (05/05/2019 2:49 PM SOCK IRONER): EKG today shows normal sinus rhythm, normal QRS morphology. Will set up a Lexiscan stress test to look for myocardial ischemia. She will not be able to do a walking stress tests on account of her physique. Polyp of sigmoid colon 04/13/2019 Assessment & Plan (04/13/2019 1:21 PM CDT): Refer to GI Osteoporosis 08/02/2017 Assessment & Plan (06/02/2019 12:15 PM SOCK IRONER): Stopping PPI to see if she can tolerate without it Assessment & Plan (04/13/2019 1:20 PM CDT): Stable Cont boniva Major depression, recurrent, chronic 01/14/2017 Assessment & Plan (04/13/2019 1:20 PM CDT): Stable Cont lexapro Morbid obesity with BMI of 60.0-69.9, adult 12/20 Assessment & Plan (07/02/2020 10:13 AM SOCK IRONER): Lose weight. Assessment & Plan (06/02/2019 12:15 PM SOCK IRONER): Wants to consider medications for weight loss. [...] 6 Assessment & Plan (06/02/2019 12:14 PM SOCK IRONER): Will have her stop the PPI and see how she does without it. Assessment & Plan (04/13/2019 1:21 PM CDT): Stable Cont omeprazole Hypertension 10/30/2015 Assessment & Plan (07/11/2020 1:01 PM SOCK IRONER): Blood pressure 138/82. Salt restriction. Continue the current antihypertensive regimen, which consists of lisinopril-HCTZ. Assessment & Plan (05/05/2019 2:46 PM SOCK IRONER): Blood pressure 134/60. Salt restriction. Continue the current regimen. Assessment & Plan (04/13/2019 1:20 PM CDT): Stable Cont prinzide Immunizations Immunization Administration Dates Next Due Influenza, Quadrivalent, Spl it, Intramuscular 05/28/2016 Influenza, Unspecified 03/21/2018(Deferr ed: Not available from rotary derrick operator) Social History Tobacco Use Types Packs/Day [...] on file Legal Sex Female 3:30 AM SOCK IRONER Gender Identity Not on file Sexual Orientation [...] Health Maintenance Results * COLONOSCOPY (08/05/2018) Pathologist [facility] Colonoscopy Abnormal Comment:sigmoid polyp us Historical Provider MD HEALTH MAINTENANCE Final Result * Hepatitis panel, acute (01/21/2018 12:10 PM CDT) [facility] Hep A IgM NON-REACTI VE NON-REACTI VE [facility] HISTORICAL RESULTS HepBsAg NON-REACTI VE NON-REACTI VE [facility] HISTORICAL RESULTS Hep B core IgM NON-REACTI VE NON-REACTI VE [facility] HISTORICAL RESULTS Hep C Ab NON-REACTI VE NON-REACTI VE [facility] HISTORICAL RESULTS SIGNAL TO CUT-OFF 0.01 <1.00 [facility] HISTORICAL RESULTS 01/21/2018 12:1 0 PM CDT 01/22/2018 9:05 AM CDT Narrative [facility] HISTORICAL RESULTS - 01/22/2018 8:59 AM CDT PERFORMING LAB: [place], [facility] [address] [place] [address] Shakeel Rasmussen D.O., MPH Carmen Sheppard MD LAB MICROBIOLOGY - GENERA L ORDERABLES Final Result [facility] HISTORICAL RESULTS from Last 3 Months or Most Recently Relevant to Health Maintenance [facility] Care Teams Certified Public Accountant Relationship Specialty Start Date End Date Boris Valiente MD [address] [facility] [address] [place] [address] PCP - General Family Medicine 03/26/20
== END 2024-08-14 08:40 | disposition home or self-care (01) ==
LOC: CHSIMG 08:41
PROVIDERS: PCP Family Medicine; Visit Provider Nurse Practitioner Obstetrics & Gynecology
DX: N63.12 Unspecified lump in the right breast, upper inner quadrant (principal); R92.8 Other abnormal and inconclusive findings on diagnostic imaging of breast
CPT/HCPCS: 76642; 77061; 77065; G0279

== ENCOUNTER 2024-08-22 15:08 | Outpatient (CLI) | payer MEDICARE, SELFPAY | END 2024-08-22 15:09 | disposition home or self-care (01) | LOC: MICIMG 15:10 | PROVIDERS: PCP Obstetrics & Gynecology; Visit Provider Family Medicine | DX: M54.50 Low back pain, unspecified (principal); G89.29 Other chronic pain; M51.369 Other intervertebral disc degeneration, lumbar region without mention of lumbar back pain or lower extremity pain | CPT/HCPCS: 72100 ==

== ENCOUNTER 2024-10-31 09:38 | Outpatient (CLI) | payer MEDICARE, SELFPAY ==
--- NOTE | ~2024-10-31 | US_ITS ---
EXAMINATION TYPE: US breast RT limited COMPARISON: 08/14/2024 REASON FOR STUDY: N63.12 - Unspecified lump in the right breast, upper inne... TECHNIQUE: Targeted sonographic evaluation of the right breast was performed. INTERPRETATION: Again identified at the 2:00 position right breast, 7 cm from the nipple, is a 1.1 x 1.7 x 0.8 cm devonte ewhat amorphous/ill-defined hyperechoic area. No posterior shadowing. IMPRESSION: Indeterminate 1.1 x 1.7 x 0.8 cm hyperechoic somewhat ill-defined area 2:00 position right breast, 7 cm reasonable. Relative stability as well as hyperechogenicity suggests benign findings. Additional f ollow-up ultrasound of the time of recommended bilateral mammography in 6 months is advised. BI-RADS CATEGORY: BI-RADS 3: Probably benign Reviewed, dictated and finalized at location . IMPRESSION: Indeterminate 1.1 x 1.7 x 0.8 cm hyperechoic somewhat ill-defined area 2:00 pos ition right breast, 7 cm reasonable. Relative stability as well as hyperechogen icity suggests benign findings. Additional follow-up ultrasound of the time of recommended bilateral mammography in 6 months is advised. BI-RADS CATEGORY: BI-RADS 3: Probably benign
--- OUTSIDE RECORDS SUMMARY | 2024-10-31 09:48 | XMS_ITS | Encounter Summary ---
Author Organization [facility] Facility Care Team Providers Care Public Relations Associate Name Role Phone Boris Valiente MD Primary Care Provider Carmen Sheppard MD Primary Care Provider [phone] Boris Valiente MD Primary Care Provider Encounter Details Date Type Department Care Team (Latest Contact Info) Description 08/08/2018 Orders Only MMG CLINCONV ProviderKota MD [address] [place] [address] Social History Tobacco Use Types Packs/Day Years Used Date Smoking Tobacco: Never Assessed Comments Unknown Sex and Gender Information Value Date Recorded Sex Assigned at Not on file Legal Sex Female 3:30 AM PRICE CHECKER Gender Identity Not on file Sexual Orientation Not on file documented as of this encounter Plan of Treatment Not on file documented as of this encounter Procedures Procedure Name Priority Date/Time Associated Diagnosis Comments COLONOSCOPY - SCAN 08/08/2018 12 :00 AM PRICE CHECKER documented in this encounter Results * COLONOSCOPY - SCAN (08/08/2018 12:00 AM PRICE CHECKER) Narrative 08/08/2018 12:00 AM PRICE CHECKER Ordered by an unspecified provider. Historical Provider Final Res ult documented in this encounter Visit Diagnoses Not on filedocumented in this encounter Care Teams Public Relations Associate Relationship Specialty Start Date End Date Boris Valiente MD [address] [facility] [address] [place] [address] PCP - General 05/28/14 10/12/18 Carmen Sheppard MD [address] [address] PCP - General Family Medicine 10/13/18 03/25/20 Boris Valiente MD [address] [address] PCP - General Family Medicine 03/26/20 documented as of this encounter
--- OUTSIDE RECORDS SUMMARY | 2024-10-31 09:48 | XMS_ITS | Referral Summary ---
Author Organization [facility] Address [address] [place] [address] Care Team Providers Care Septic Cleaner Name Role Phone Boris Valiente MD Primary [...] time Assessment & Plan (07/01/2020 4:46 PM SENIOR FOREMAN): The echo Doppler showed normal ejection fraction. No significant valvular abnormality. The BNP level on 05/05/[address] angio of the chest 05/29/2019 showed no pulmonary embolism. No pneumonia. Findings suggestive of fatty infiltration of the liver. Precordial chest pain 05/05/2019 Assessment & Plan (07/02/2020 10:14 AM SENIOR FOREMAN): Lexiscan stress test 05/12/2019, was negative for ischemia. Echo showed normal ejection fraction, no significant valvular abnormality. Has been having chest pains again since the beginning of the new year. Musculoskeletal chest wall pains as described under the HPI . No further cardiac workup required. Assessment & Plan (05/05/2019 2:49 PM SENIOR FOREMAN): EKG today shows normal sinus rhythm, normal QRS morphology. Will set up a Lexiscan stress test to look for myocardial ischemia. She will not be able to do a walking stress tests on account of her physique. Polyp of sigmoid colon 04/13/2019 Assessment & Plan (04/13/2019 1:21 PM CDT): Refer to GI Osteoporosis 08/02/2017 Assessment & Plan (06/02/2019 12:15 PM SENIOR FOREMAN): Stopping PPI to see if she can tolerate without it Assessment & Plan (04/13/2019 1:20 PM CDT): Stable Cont boniva Major depression, recurrent, chronic 01/14/2017 Assessment & Plan (04/13/2019 1:20 PM CDT): Stable Cont lexapro Morbid obesity with BMI of 60.0-69.9, adult 12/20 Assessment & Plan (07/02/2020 10:13 AM SENIOR FOREMAN): Lose weight. Assessment & Plan (06/02/2019 12:15 PM SENIOR FOREMAN): Wants to consider medications for weight loss. [...] 6 Assessment & Plan (06/02/2019 12:14 PM SENIOR FOREMAN): Will have her stop the PPI and see how she does without it. Assessment & Plan (04/13/2019 1:21 PM CDT): Stable Cont omeprazole Hypertension 10/30/2015 Assessment & Plan (07/11/2020 1:01 PM SENIOR FOREMAN): Blood pressure 138/82. Salt restriction. Continue the current antihypertensive regimen, which consists of lisinopril-HCTZ. Assessment & Plan (05/05/2019 2:46 PM SENIOR FOREMAN): Blood pressure 134/60. Salt restriction. Continue the current regimen. Assessment & Plan (04/13/2019 1:20 PM CDT): Stable Cont prinzide Immunizations Immunization Administration Dates Next Due Influenza, Quadrivalent, Spl it, Intramuscular 05/28/2016 Influenza, Unspecified 03/21/2018(Deferr ed: Not available from design engineering technician) Social History Tobacco Use Types Packs/Day Years [...] on file Legal Sex Female 3:30 AM SENIOR FOREMAN Gender Identity Not on file Sexual Orientation [...] Health Maintenance Results * COLONOSCOPY (08/05/2018) Pathologist [facility] Colonoscopy Abnormal Comment:sigmoid polyp us Historical Provider MD HEALTH MAINTENANCE Final Result * Hepatitis panel, acute (01/21/2018 12:10 PM CDT) [facility] Hep A IgM NON-REACTI VE NON-REACTI VE [facility] HISTORICAL RESULTS HepBsAg NON-REACTI VE NON-REACTI VE [facility] HISTORICAL RESULTS Hep B core IgM NON-REACTI VE NON-REACTI VE [facility] HISTORICAL RESULTS Hep C Ab NON-REACTI VE NON-REACTI VE [facility] HISTORICAL RESULTS SIGNAL TO CUT-OFF 0.01 <1.00 [facility] HISTORICAL RESULTS 01/21/2018 12:1 0 PM CDT 01/22/2018 9:05 AM CDT Narrative [facility] HISTORICAL RESULTS - 01/22/2018 8:59 AM CDT PERFORMING LAB: [place], [facility] [address] [place] [address] Shakeel Rasmussen D.O., MPH Carmen Sheppard MD LAB MICROBIOLOGY - GENERA L ORDERABLES Final Result [facility] HISTORICAL RESULTS from Last 3 Months or Most Recently Relevant to Health Maintenance [facility] Care Teams Septic Cleaner Relationship Specialty Start Date End Date Boris Valiente MD [address] [facility] [address] [place] [address] PCP - General Family Medicine 03/26/20
--- OUTSIDE RECORDS SUMMARY | 2024-10-31 09:48 | XMS_ITS | Clinical Summary ---
Author Organization [facility] Address [address] [place] [address] Care Team Providers Care Director General Name Role Phone Boris Valiente MD Primary [...] time Assessment & Plan (07/01/2020 4:46 PM MACHINE TOOL REBUILDER): The echo Doppler showed normal ejection fraction. No significant valvular abnormality. The BNP level on 05/05/[address] angio of the chest 05/29/2019 showed no pulmonary embolism. No pneumonia. Findings suggestive of fatty infiltration of the liver. Precordial chest pain 05/05/2019 Assessment & Plan (07/02/2020 10:14 AM MACHINE TOOL REBUILDER): Lexiscan stress test 05/12/2019, was negative for ischemia. Echo showed normal ejection fraction, no significant valvular abnormality. Has been having chest pains again since the beginning of the new year. Musculoskeletal chest wall pains as described under the HPI . No further cardiac workup required. Assessment & Plan (05/05/2019 2:49 PM MACHINE TOOL REBUILDER): EKG today shows normal sinus rhythm, normal QRS morphology. Will set up a Lexiscan stress test to look for myocardial ischemia. She will not be able to do a walking stress tests on account of her physique. Polyp of sigmoid colon 04/13/2019 Assessment & Plan (04/13/2019 1:21 PM CDT): Refer to GI Osteoporosis 08/02/2017 Assessment & Plan (06/02/2019 12:15 PM MACHINE TOOL REBUILDER): Stopping PPI to see if she can tolerate without it Assessment & Plan (04/13/2019 1:20 PM CDT): Stable Cont boniva Major depression, recurrent, chronic 01/14/2017 Assessment & Plan (04/13/2019 1:20 PM CDT): Stable Cont lexapro Morbid obesity with BMI of 60.0-69.9, adult 12/20 Assessment & Plan (07/02/2020 10:13 AM MACHINE TOOL REBUILDER): Lose weight. Assessment & Plan (06/02/2019 12:15 PM MACHINE TOOL REBUILDER): Wants to consider medications for weight loss. [...] 6 Assessment & Plan (06/02/2019 12:14 PM MACHINE TOOL REBUILDER): Will have her stop the PPI and see how she does without it. Assessment & Plan (04/13/2019 1:21 PM CDT): Stable Cont omeprazole Hypertension 10/30/2015 Assessment & Plan (07/11/2020 1:01 PM MACHINE TOOL REBUILDER): Blood pressure 138/82. Salt restriction. Continue the current antihypertensive regimen, which consists of lisinopril-HCTZ. Assessment & Plan (05/05/2019 2:46 PM MACHINE TOOL REBUILDER): Blood pressure 134/60. Salt restriction. Continue the current regimen. Assessment & Plan (04/13/2019 1:20 PM CDT): Stable Cont prinzide Immunizations Immunization Administration Dates Next Due Influenza, Quadrivalent, Spl it, Intramuscular 05/28/2016 Influenza, Unspecified 03/21/2018(Deferr ed: Not available from tile mechanic) Surgical History Surgery Date Site/Laterality Comments SECTION [...] on file Legal Sex Female 3:30 AM MACHINE TOOL REBUILDER Gender Identity Not on file Sexual Orientation [...] - Tdap) 1970 Hepatitis B Screening 1977 Pneumococcal vaccine 65+ (1 of 1 - PCV) 2009 Zoster Vaccine (1 of 2) 2009 Influenza Vaccine (#1) 2024 05/28/2016 Well Visit 65+ 2024 Colon Cancer Screening-Colonoscopy [...] to Health Maintenance Results * COLONOSCOPY (08/05/2018) [facility] Colonoscopy Abnormal Comment:sigmoid polyp Historical Provider HEALTH MAINTENANCE Final Result * Hepatitis panel, acute (01/21/2018 12:10 PM CDT) [facility] Hep A IgM NON-REACTI VE NON-REACTI VE [facility] HISTORICAL RESULTS HepBsAg NON-REACTI VE NON-REACTI VE [facility] HISTORICAL RESULTS Hep B core IgM NON-REACTI VE NON-REACTI VE [facility] HISTORICAL RESULTS Hep C Ab NON-REACTI VE NON-REACTI VE [facility] HISTORICAL RESULTS SIGNAL TO CUT-OFF 0.01 <1.00 [facility] HISTORICAL RESULTS 01/21/2018 12:1 0 PM CDT 01/22/2018 9:05 AM CDT Narrative [facility] HISTORICAL RESULTS - 01/22/2018 8:59 AM CDT PERFORMING LAB: [place], [facility] [address], [place] [address] Shakeel Rasmussen D.O., MPH us Carmen Sheppard MD LAB MICROBIOLOGY - GENERA L ORDERABLES Final Result [facility] HISTORICAL RESULTS from Last 3 Months or Most Recently Relevant to Health Maintenance Insurance [facility] [place] [address] Care Teams Director General Relationship Specialty Start Date End Date Boris Valiente MD [address] [facility] [address] [place] [address] PCP - General Family Medicine 03/26/20
== END 2024-10-31 09:39 | disposition home or self-care (01) ==
PROVIDERS: PCP Family Medicine; Visit Provider Surgery
DX: N63.12 Unspecified lump in the right breast, upper inner quadrant (principal); R92.8 Other abnormal and inconclusive findings on diagnostic imaging of breast
CPT/HCPCS: 76642

== ENCOUNTER 2025-04-30 12:31 | Outpatient (CLI) | payer MEDICARE, SELFPAY ==
--- NOTE | ~2025-04-30 | MMUS_ITS ---
EXAMINATION: MM diagnostic bautista BI w vijay, US breast RT limited HISTORY: Follow-up right breast mass TECHNIQUE: Additional 3-D tomosynthesis images of the breasts were performed and synthetic 2-D images were generated. CAD analysis was submitted and interpreted. High resolution Limited right breast ultrasound was performed. COMPARISON: Comparison to multiple prior studies sequentially, with oldest reviewed study dated 08/11/2019. BREAST PARENCHYMAL COMPOSITION: Not Dense: The breasts are almost entirely fatty. FINDINGS: MAMMOGRAPHIC FINDINGS: The breasts are stable. No suspicious masses, calcifications or architectural distortion in either breast to suggest malignancy. ULTRASOUND: Limited right breast ultrasound: Decreased size of hyperechoic mass of the right breast at 2:00, 7 cm from the nipple now measuring 10 x 10 x 4 mm compared with 17 x 11 x 8 mm on prior examinations, consistent with benign mass, most likely fat necrosis. IMPRESSION: 1. Decreased size of benign-appearing mass in the right breast now measuring 10 mm maximum dimension. 2. Given one year of interval stability, recommend 12 month followup bilateral screening mammogram and Limited right breast ultrasound. BI-RADS category 3, probably benign findings. Reviewed, dictated and finalized at location B. CUTTER IMPRESSION: 1. Decreased size of benign-appearing mass in the right breast now measuring 10 mm maximum dimension. 2. Given one year of interval stability, recommend 12 month followup bilateral screening mammogram and Limited right breast ultrasound. BI-RADS category 3, probably benign findings.
--- OUTSIDE RECORDS SUMMARY | 2025-04-30 12:47 | XMS_ITS | Clinical Summary ---
Author Organization [facility] Address [address] [place] [address] Care Team Providers Care Subassemblies Wirer Name Role Phone Boris Valiente MD Primary [...] 2 (two) times a day 03/07/2022 Active denosumab (PROLIA) 60 mg/mL syringe Inject under the skin once Active Active Problems Problem Noted Date Diagnosed Date Primary osteoarthritis of both knees 10/14/2022 Shortness of breath 07/01/2020 Assessment & Plan (04/18/2024 9:43 AM CDT): The patient is reporting 1 episode of breathing that caused back pain. I have offered a chest x-ray. The patient would like to hold off at this time Assessment & Plan (07/01/2020 4:46 PM CABLE TELEVISION ACCESS COORDINATOR): The echo Doppler showed normal ejection fraction. No significant valvular abnormality. The BNP level on 05/05/[address] angio of the chest 05/29/2019 showed no pulmonary embolism. No pneumonia. Findings suggestive of fatty infiltration of the liver. Precordial chest pain 05/05/2019 Assessment & Plan (07/02/2020 10:14 AM CABLE TELEVISION ACCESS COORDINATOR): Lexiscan stress test 05/12/2019, was negative for ischemia. Echo showed normal ejection fraction, no significant valvular abnormality. Has been having chest pains again since the beginning of the new year. Musculoskeletal chest wall pains as described under the HPI . No further cardiac workup required. Assessment & Plan (05/05/2019 2:49 PM CABLE TELEVISION ACCESS COORDINATOR): EKG today shows normal sinus rhythm, normal QRS morphology. Will set up a Lexiscan stress test to look for myocardial ischemia. She will not be able to do a walking stress tests on account of her physique. Polyp of sigmoid colon 04/13/2019 Assessment & Plan (04/13/2019 1:21 PM CDT): Refer to GI Osteoporosis 08/02/2017 Assessment & Plan (06/02/2019 12:15 PM CABLE TELEVISION ACCESS COORDINATOR): Stopping PPI to see if she can tolerate without it Assessment & Plan (04/13/2019 1:20 PM CDT): Stable Cont boniva Major depression, recurrent, chronic 01/14/2017 Assessment & Plan (04/13/2019 1:20 PM CDT): Stable Cont lexapro Morbid obesity with BMI of 60.0-69.9, adult 12/20 Assessment & Plan (07/02/2020 10:13 AM CABLE TELEVISION ACCESS COORDINATOR): Lose weight. Assessment & Plan (06/02/2019 12:15 PM CABLE TELEVISION ACCESS COORDINATOR): Wants to consider medications for weight loss. [...] (obstructive sleep apnea) 12/16/2015 Assessment & Plan (04/19/2025 10:09 AM CDT): Patient continue to wear her CPAP at 18 cm water pressure while sleeping. Her DME is [employer]. I will order the patient a new CPAP set at 18 cm water pressure. Assessment & Plan (04/18/2024 9:43 AM CDT): [...] 6 Assessment & Plan (06/02/2019 12:14 PM CABLE TELEVISION ACCESS COORDINATOR): Will have her stop the PPI and see how she does without it. Assessment & Plan (04/13/2019 1:21 PM CDT): Stable Cont omeprazole Hypertension 10/30/2015 Assessment & Plan (07/11/2020 1:01 PM CABLE TELEVISION ACCESS COORDINATOR): Blood pressure 138/82. Salt restriction. Continue the current antihypertensive regimen, which consists of lisinopril-HCTZ. Assessment & Plan (05/05/2019 2:46 PM CABLE TELEVISION ACCESS COORDINATOR): Blood pressure 134/60. Salt restriction. Continue the current regimen. Assessment & Plan (04/13/2019 1:20 PM CDT): Stable Cont prinzide Encounters Date Type Department Care Team Description 04/19/2025 9:15 AM CDT Office Visit [facility] [address] [address] Yulia Henao NP AMPARO (obstructive sleep apnea) (Primary Dx) 04/19/2025 Telephone [facility] [address] [address] Jose Morgan MD Orders Only 04/11/2025 Telephone [facility] [address] [address] Naida Fox MA Chart Prep (Call made to the patient, sd card) 02/15/2025 9:41 AM CDT - 02/15/2025 11:59 PM CDT Hospital Encounter [facility] [address] [place] [address] Encounter for disability determination Discharge Disposition: Discharge to home or self care from Last 3 Months Immunizations Immunization Administration Dates Next Due Influenza, Quadrivalent, Spl it, Intramuscular 05/28/2016 Influenza, Unspecified 03/21/2018(Deferr ed: Not available from distance education director) Surgical History Surgery Date Site/Laterality Comments SECTION [...] more drinks on one occasion? Never 04/07/2021 Comments Unknown Sex and Gender Information Value Date Recorded Sex Assigned at Not on file Legal Sex Female 3:30 AM CABLE TELEVISION ACCESS COORDINATOR Gender Identity Not on file Sexual Orientation Not on file Last Filed Vital Signs Vital Sign Reading Time Taken Comments Blood Pressure 118/62 04/19/2025 9:03 AM CDT Pulse 78 04/19/2025 9:03 AM CDT Temperature 35.8 C (96.4 F) 04/19/2025 9:03 AM CDT Respiratory Rate 17 04/19/2025 9:03 AM CDT Oxygen Saturation 98% 04/19/2025 9:03 AM CDT Inhaled Oxygen Concentration - - Weight 176 kg (388 lb) 04/19/2025 9:03 AM CDT Height 152.4 cm (5') 04/19/2025 9:03 AM CDT Body Mass Index 75.78 04/19/2025 9:03 AM CDT Plan of Treatment Health Maintenance Due Date Last Done Comments Breast Cancer Screening-Mammogram 1959 Depression Screening 1959 Fall Risk Assessment 1959 Osteoporosis Screening-Bone Density Scan 1959 DTaP/Tdap/Td Vaccine (1 - Tdap) 1970 Hepatitis B Screening 1977 Pneumococcal vaccine 65+ (1 of 1 - PCV) 2009 Zoster Vaccine (1 of 2) 2009 Well Visit 65+ 2024 Influenza Vaccine (#1) 2025 05/28/2016 Colon Cancer Screening-Colonoscopy 08/05/20282018 Hepatitis C Screening Completed 01/21/2018 Colon Cancer Screening-CT Colonography Discontinued Colon Cancer Screening-DNA Stool Discontinued 08/05/19 Colon Cancer Screening-FIT Discontinued 08/05/2018 Colon Cancer Screening-Sigmoidoscopy Discontinued 07/22 Procedures Procedure Name Priority Date/Time Associated Diagnosis Comments XR KNEE LEFT 1 OR 2 VIEWS Schedule Routine, Read Routine (OP Routine) 02/15/2025 10:09 AM CDT Encounter for disability determination XR KNEE RIGHT 1 OR 2 VIEWS Schedule Routine, Read Routine (OP Routine) 02/15/2025 10:09 AM CDT Encounter for disability determination [facility] COLONOSCOPY Routine 08/05/2018 HEPATITIS PANEL, ACUTE Routine 01/21/2018 12:10 PM CDT from Last 3 Months or Most Recently Relevant to Health Maintenance Results * XR Knee Right 1 or 2 Views (02/15/2025 10:09 AM CDT) Anatomical Region Laterality Modality Lower Extremities, Knee Right Computed Radiography 02/16/2025 2:34 PM CDT Narrative 02/16/2025 2:35 PM CDT EXAM DESCRIPTION: 1. XR KNEE RIGHT 1 OR 2 VIEWS; 2. XR KNEE LEFT 1 OR 2 VIEWS REASON FOR STUDY: Bilateral knee osteoarthritis Chronic pain pops while walking FINDINGS: Two views each knee submitted with comparison 03/26/2020. No acute fracture. Moderate to severe medial predominant tricompartmental bilateral knee osteoarthritis. Genu varus is present. No effusions. Loose bodies noted. IMPRESSION: 1. Moderate to severe medial predominant tricompartmental bilateral knee osteoarthritis with genu varus. THIS IS AN ELECTRONICALLY VERIFIED FINAL REPORT 02/16/2025 2:35 PM - Electronically signed by Messi Jacques M.D. MF: [email or web address] Report ID: [id number] Reading Location: [id number] Procedure Note Messi Jacques MD - 02/16/2025 EXAM DESCRIPTION: 1. XR KNEE RIGHT 1 OR 2 VIEWS; 2. XR KNEE LEFT 1 OR 2 VIEWS REASON FOR STUDY: Bilateral knee osteoarthritis Chronic pain pops while walking FINDINGS: Two views each knee submitted with comparison 03/26/2020. No acute fracture. Moderate to severe medial predominant tricompartmental bilateral knee osteoarthritis. Genu varus is present. No effusions.Loose bodies noted. IMPRESSION: 1. Moderate to severe medial predominant tricompartmental bilateral knee osteoarthritis with genu varus. THIS IS AN ELECTRONICALLY VERIFIED FINAL REPORT 02/16/2025 2:35 PM - Electronically signed by Messi Jacques M.D. MF: [email or web address] Report ID: [id number] Reading Location: [place] [address] [place] Alejandro Sargent MD IMG XR PROCEDURES Final Result * XR Knee Left 1 or 2 Views (02/15/2025 10:09 AM CDT) Anatomical Region Laterality Modality Lower Extremities, Knee Left Computed Radiography 02/16/2025 2:34 PM CDT Narrative 02/16/2025 2:35 PM CDT EXAM DESCRIPTION: 1. XR KNEE RIGHT 1 OR 2 VIEWS; 2. XR KNEE LEFT 1 OR 2 VIEWS REASON FOR STUDY: Bilateral knee osteoarthritis Chronic pain pops while walking FINDINGS: Two views each knee submitted with comparison 03/26/2020. No acute fracture. Moderate to severe medial predominant tricompartmental bilateral knee osteoarthritis. Genu varus is present. No effusions. Loose bodies noted. IMPRESSION: 1. Moderate to severe medial predominant tricompartmental bilateral knee osteoarthritis with genu varus. THIS IS AN ELECTRONICALLY VERIFIED FINAL REPORT 02/16/2025 2:35 PM - Electronically signed by Messi Jacques M.D. MF: [email or web address] Report ID: [id number] Reading Location: [place] [address] Procedure Note Messi Jacques MD - 02/16/2025 EXAM DESCRIPTION: 1. XR KNEE RIGHT 1 OR 2 VIEWS; 2. XR KNEE LEFT 1 OR 2 VIEWS REASON FOR STUDY: Bilateral knee osteoarthritis Chronic pain pops while walking FINDINGS: Two views each knee submitted with comparison 03/26/2020. No acute fracture. Moderate to severe medial predominant tricompartmental bilateral knee osteoarthritis. Genu varus is present. No effusions.Loose bodies noted. IMPRESSION: 1. Moderate to severe medial predominant tricompartmental bilateral knee osteoarthritis with genu varus. THIS IS AN ELECTRONICALLY VERIFIED FINAL REPORT 02/16/2025 2:35 PM - Electronically signed by Messi Jacques M.D. MF: [email or web address] Report ID: [id number] Reading Location: [place] [address] Alejandro Sargent MD IMG XR PROCEDURES Final Result * COLONOSCOPY (08/05/2018) Colonoscopy Abnormal Comment:sigmoid polyp Historical Provider HEALTH MAINTENANCE Final Result * Hepatitis panel, acute (01/21/2018 12:10 PM CDT) Hep A IgM NON-REACTI VE NON-REACTI VE [facility] HISTORICAL RESULTS HepBsAg NON-REACTI VE NON-REACTI VE [facility] HISTORICAL RESULTS Hep B core IgM NON-REACTI VE NON-REACTI VE [facility] HISTORICAL RESULTS Hep C Ab NON-REACTI VE NON-REACTI VE [facility] HISTORICAL RESULTS SIGNAL TO CUT-OFF 0.01 <1.00 [facility] HISTORICAL RESULTS 01/21/2018 12:1 0 PM CDT 01/22/2018 9:05 AM CDT Narrative [facility] HISTORICAL RESULTS - 01/22/2018 8:59 AM CDT PERFORMING LAB: [place], [facility] [address] [place] [address] Shakeel Rasmussen D.O., MPH Carmen Sheppard MD LAB MICROBIOLOGY - GENERA L ORDERABLES Final Result [facility] HISTORICAL RESULTS from Last 3 Months or Most Recently Relevant to Health Maintenance Insurance [employer] [facility] [employer] [place] [employer] [place] [address] Care Teams Subassemblies Wirer Relationship Specialty Start Date End Date Boris Valiente MD [address] [facility] [address] [place] [address] PCP - General Family Medicine 03/26/20
--- OUTSIDE RECORDS SUMMARY | 2025-04-30 12:47 | XMS_ITS | Encounter Summary ---
Author Organization [facility] Care Team Providers Care Facilities Mechanical Design Engineer Name Role Phone Boris Valiente MD Primary Care Provider Carmen Sheppard MD Primary Care Provider + [phone] Boris Valiente MD Primary Care Provider Encounter Details Date Type Department Care Team (Latest Contact Info) Description 08/08/2018 Orders Only [facility] ProviderKota MD [address] [place] [id number] Social History Tobacco Use Types Packs/Day Years Used Date Smoking Tobacco: Never Assessed Comments Unknown Sex and Gender Information Value Date Recorded Sex Assigned at Not on file Legal Sex Female 3:30 AM ENDLESS TRACK VEHICLE MECHANIC Gender Identity Not on file Sexual Orientation Not on file documented as of this encounter Plan of Treatment Not on file documented as of this encounter Procedures Procedure Name Priority Date/Time Associated Diagnosis Comments COLONOSCOPY - SCAN 08/08/2018 12 :00 AM ENDLESS TRACK VEHICLE MECHANIC documented in this encounter Results * COLONOSCOPY - SCAN (08/08/2018 12:00 AM ENDLESS TRACK VEHICLE MECHANIC) Narrative 08/08/2018 12:00 AM ENDLESS TRACK VEHICLE MECHANIC Ordered by an unspecified provider. Historical Provider Final Res ult documented in this encounter Visit Diagnoses Not on filedocumented in this encounter Care Teams Facilities Mechanical Design Engineer Relationship Specialty Start Date End Date Boris Valiente MD [address] [facility] [address] [place] [address] PCP - General 05/28/14 10/12/18 Carmen Sheppard MD [address] [address] PCP - General Family Medicine 10/13/18 03/25/20 Boris Valiente MD [address] [address] PCP - General Family Medicine 03/26/20 documented as of this encounter
--- OUTSIDE RECORDS SUMMARY | 2025-04-30 12:47 | XMS_ITS | Clinical Summary ---
Author Organization [facility] Address [facility] [place] [address] Care Team Providers Care Veterinarian Epidemiologist Name Role Phone Boris Valiente MD Primary Care Provider [phone] Allergies Active Allergy Reactions Criticality Noted Date Comments Clindamycin Hives 04/06/2025 Penicillins Hives 04/06/2025 Medications lisinopril-hydr oCHLOROthiazide (ZESTORETIC) 10-12.5 MG tablet Take 1 tablet by mouth daily. Active omeprazole (PRILOSEC) 40 MG capsule Take 1 capsule (40 mg total) by mouth daily. Active Calcium Carb-Cholecalci ferol 500-3.125 MG-MCG Tab Take 1 tablet by mouth daily. Active escitalopram (LEXAPRO) 20 MG tablet Take 1 tablet (20 mg total) by mouth daily. Active loratadine (CLARITIN) 10 MG tablet Take 1 tablet (10 mg total) by mouth daily. Active denosumab (PROLIA) 60 MG/ML injection Inject 1 mL (60 mg total) into the skin once. Active Menatetrenone (VITAMIN K2) 100 MCG Tab Active diclofenac sodium (VOLTAREN) 1 % gel Apply topically 4 (four) times daily. Active Active Problems Problem Noted Date Diagnosed Date Spinal stenosis of lumbar re gion without neurogenic claudication 04/06/2025 Encounters Date Type Department Care Team Description 04/06/2025 1:43 PM CDT - 04/06/2025 11:59 PM CDT Hospital Encounter [facility] [place] [address] [phone] Viktoria Boogie NP Discharge Disposition: Home or Self Care (Routine Discharge) 04/06/2025 Travel 02/27/2025 10:53 AM CDT - 02/27/2025 11:59 PM CDT Hospital Encounter [facility] Open MRI [address] [place] [address] Boris Valiente MD Discharge Disposition: Home or Self Care (Routine Discharge) 02/27/2025 Travel from Last 3 Months Family History Medical History Relation Comments Arthritis Father COPD Father Arthritis Mother Cancer Mother Relation Status Comments Father Mother Social History Tobacco Use Types Packs/Day Years Used Date Smoking Tobacco: Never Smokeless Tobacco: Never Tobacco Cessation:Counseling Given: Not Answered Alcohol Use Standard Drinks/Week Comments Not Currently 0 (1 standard drink = 0.6 oz pur e alcohol) Comments Unknown Sex and Gender Information Value Date Recorded Sex Assigned at Female 02/27/2025 10:43 AM CDT Legal Sex Female 10:15 AM CDT Gender Identity Not on file Sexual Orientation Not on file Last Filed Vital Signs Vital Sign Reading Time Taken Comments Blood Pressure 160/50 04/06/2025 2:03 PM CDT Pulse 64 04/06/2025 2:03 PM CDT Temperature 36.2 C (97.2 F) 04/06/2025 2:03 PM CDT Respiratory Rate 16 04/06/2025 2:03 PM CDT Oxygen Saturation 96% 04/06/2025 2:03 PM CDT Inhaled Oxygen Concentration - - Weight 175.5 kg (387 lb) 04/06/2025 2:03 PM CDT Height 152.4 cm (5') 04/06/2025 2:03 PM CDT Body Mass Index 75.58 04/06/2025 2:03 PM CDT Plan of Treatment Upcoming Encounters Date Type Department Care Team (Latest Contact Info) Description 05/08/2025 8:40 AM TRACK WELDER Hospital Encounter [facility] [place] [address] [phone] Vicki Keyes MD [facility] [address] [place] [phone] 05/08/2025 8:40 AM TRACK WELDER - 05/08/2025 9:00 AM TRACK WELDER Surgery [facility] [place] [address] [phone] Vicki Keyes MD [facility] [address] [place] [phone] INJECTION EPIDURAL LUMBAR INTERLAMINAR L3-4 Scheduled Procedures Name Priority Associated Diagnoses Date/Ti me INJECTION EPIDURAL LUMBAR INTERLAMINAR Spinal stenosis of lumbar region without neurogenic claudication 05/08/2025 8:40 AM TRACK WELDER Health Maintenance Due Date Last Done Comments Colorectal Cancer Screening Colonoscopy (10 Years) 1959 Hepatitis C 1977 DTaP, Tdap and Td Vaccines ( 1 - Tdap) 1978 Mammogram Screening 1999 Pneumococcal Vaccine: 50+ Years (1 of 1 - PCV) 2009 Zoster Vaccines (1 of 2) 2009 RSV Immunization or 60+ Years (1 - Risk 60-74 years 1-dose series) 2019 Annual Medicare Wellness Visit 2024 Dexa Scan (General) 2024 COVID-19 Vaccine (4 - 2024-2 6 season) 2025 05/10/2021, 09/08/2020, 08/17/2020 Influenza Adult (#1) 2025 05/10/2021, 05/05/2020, 05/28/2016 Hepatitis A Vaccines Aged Out No long er eligible based on patient's age to complete this topic Meningococcal B Vaccine Aged Out No l onger eligible based on patient's age to complete this topic Meningococcal Vaccine Aged Out No mitzi chalo eligible based on patient's age to complete this topic RSV Immunizations Under 20 Months Aged Out No longer eligible b ased on patient's age to complete this topic Goals Goal Patient Goal Type Associated Problems Recent Progress Patient-Stated? Author Autogenera wally Goal Care Plan Autogenerated Problem No Dornin, Brenna E, RAFIQ Procedures Procedure Name Priority Date/Time Associated Diagnosis Comments MRI LUMB SPINE WO CON Routine 02/27/2025 11:56 AM CDT Other chronic pain Low back pain, unspecified from Last 3 Months Results * MRI LUMB SPINE WO CON (02/27/2025 11:56 AM CDT) Anatomical Region Laterality Modality Spine Magnetic Resonan ce 03/05/2025 8:40 AM CDT Impressions 03/05/2025 8:44 AM CDT IMPRESSION: 1) Study limited by artifact associated with patient's size. 2. Lumbar spinal canal somewhat narrow on a developmental basis. There is superimposed chronic multilevel degenerative disc disease/spondylosis causing significant central stenosis and foraminal narrowing at multiple levels as described. Ordered By: BORIS VALIENTE Interpreted By: Brian Gaxiola MD, 03/05/2025 8:40 AM Narrative 03/05/2025 8:44 AM CDT [address] [address] Examination: MRI LUMB SPINE WO CON Exam time: 02/27/2025 11:01 AM Clinical history: Chronic back pain Comparison: None Technique: Sagittal T1, T2 FSE and STIR images lumbar spine. Axial T1 and T2- weighted images. No intravenous contrast. Findings: Image detail is limited somewhat due to artifact associated with patient's size. Lumbar vertebral bodies are in good alignment. Lumbar vertebral body heights are well-maintained. No significant spondylolisthesis. Benign discogenic endplate marrow signal changes are noted at L3-4. No significant marrow replacing mass lesions are noted in the lumbar spine. The conus is normal in appearance with the tip the conus at the L1 level. Lumbar spinal canal is somewhat narrow on a developmental basis related to relatively short pedicles. T11-12 demonstrates hypertrophic facet degenerative change contributing to mild central stenosis and moderate narrowing of both neural foramina. T12-L1 disc level is unremarkable. L1-2 demonstrates chronic degenerative disc disease with diffuse disc bulge, facet degenerative change and ligamentum flavum thickening causing moderate central stenosis with mild narrowing of both neural foramina. L2-3 demonstrates chronic degenerative disc disease with diffuse disc bulge, facet degenerative change and ligamentum flavum thickening causing moderate central stenosis with moderate narrowing of both neural foramina. L3-4 demonstrates chronic degenerative disc disease with diffuse disc bulge, facet degenerative change and ligamentum flavum thickening causing severe central stenosis with moderate narrowing of both neural foramina. L4-5 demonstrates chronic degenerative disc disease with diffuse disc bulge, facet degenerative change and ligamentum flavum thickening causing moderate central stenosis with mild narrowing of both neural foramina. L5-S1 demonstrates chronic degenerative disc disease with diffuse disc bulge and facet degenerative change causing mild narrowing of both neural foramina. No significant central stenosis. No significant acute paraspinous soft tissue abnormality is demonstrated. Procedure Note Brian Gaxiola MD - 03/05/[address] [address] Examination: MRI LUMB SPINE WO CON Exam time: 02/27/2025 11:01 AM Clinical history: Chronic back pain Comparison: None Technique: Sagittal T1, T2 FSE and STIR images lumbar spine. Axial T1 andT2- weighted images. No intravenous contrast. Findings: Image detail is limited somewhat due to artifact associated withpatient's size. Lumbar vertebral bodies are in good alignment. Lumbar vertebral bodyheights are well-maintained. No significant spondylolisthesis. Benigndiscogenic endplate marrow signal changes are noted at L3-4. Nosignificant marrow replacing mass lesions are noted in the lumbar spine.The conus is normal in appearance with the tip the conus at the L1 level.Lumbar spinal canal is somewhat narrow on a developmental basis related torelatively short pedicles. T11-12 demonstrates hypertrophic facet degenerative change contributing tomild central stenosis and moderate narrowing of both neural foramina. T12-L1 disc level is unremarkable. L1-2 demonstrates chronic degenerative disc disease with diffuse discbulge, facet degenerative change and ligamentum flavum thickening causingmoderate central stenosis with mild narrowing of both neural foramina. L2-3 demonstrates chronic degenerative disc disease with diffuse discbulge, facet degenerative change and ligamentum flavum thickening causingmoderate central stenosis with moderate narrowing of both neuralforamina. L3-4 demonstrates chronic degenerative disc disease with diffuse discbulge, facet degenerative change and ligamentum flavum thickening causingsevere central stenosis with moderate narrowing of both neural foramina. L4-5 demonstrates chronic degenerative disc disease with diffuse discbulge, facet degenerative change and ligamentum flavum thickening causingmoderate central stenosis with mild narrowing of both neural foramina. L5-S1 demonstrates chronic degenerative disc disease with diffuse discbulge and facet degenerative change causing mild narrowing of both neuralforamina. No significant central stenosis. No significant acute paraspinous soft tissue abnormality isdemonstrated. IMPRESSION: 1) Study limited by artifact associated with patient's size. 2. Lumbar spinal canal somewhat narrow on a developmental basis. There issuperimposed chronic multilevel degenerative disc disease/spondylosiscausing significant central stenosis and foraminal narrowing at multiplelevels as described. Ordered By: BORIS VALIENTE Interpreted By: Brian Gaxiola MD, 03/05/2025 8:40 AM Boris Valiente MD MRI Final Result from Last 3 Months Additional Health Concerns Active Problems Noted Date Diagnosed Date Autogenerated Problem 04/06/2025 Insurance [employer] MEDICARE Care Teams Veterinarian Epidemiologist Relationship Specialty Start Date End Date Boris Valiente MD [address] [facility] [address] [place] [address] PCP - General FAMILY PRACTICE 02/27/25
== END 2025-04-30 12:32 | disposition home or self-care (01) ==
PROVIDERS: PCP Family Medicine; Visit Provider Surgery
DX: N63.12 Unspecified lump in the right breast, upper inner quadrant (principal); R92.8 Other abnormal and inconclusive findings on diagnostic imaging of breast
CPT/HCPCS: 76642; 77062; 77066; G0279